=== PATIENT | male | born 1980 | race Caucasian/White ===

== ENCOUNTER 2024-08-25 10:33 | Emergency (ER) | payer MEDICAID, SELFPAY ==
--- NOTE | 2024-08-25 10:36 | ECG_ITS ---
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
[2024-08-25 10:42] VITALS: BP 125/91; PULSE 80; RESP 16; TEMP 36.8; O2SAT 98; BMI 27.2
--- NOTE | 2024-08-25 10:46 | CTR_ITS ---
PROCEDURE INFORMATION: Exam: CT Head Without Contrast Exam date and time: 08/25/2024 11:04 AM Age: 44 years old Clinical indication: Dizziness TECHNIQUE: Imaging protocol: Computed tomography of the head without contrast. Radiation optimization: All CT scans at this facility use at least one of these dose optimization techniques: automated exposure control; mA and/or kV adjustment per patient size (includes targeted exams where dose is matched to clinical indication); or iterative reconstruction. COMPARISON: No relevant prior studies available. RADIATION DOSE METRICS: Total DLP (mGy-cm): 1043.68 FINDINGS: Brain: Normal. No hemorrhage. Unremarkable white matter. No mass effect. Cerebral ventricles: No ventriculomegaly. Paranasal sinuses: Visualized sinuses are unremarkable. No fluid levels. Mastoid air cells: Visualized mastoid air cells are well aerated. Bones: Unremarkable. No acute fracture. Soft tissues: Unremarkable. CT/CT head wo con* [id number] IMPRESSION: No large territorial infarct or intracranial bleed.
--- NOTE | 2024-08-25 10:46 | XRR_ITS ---
PROCEDURE INFORMATION: Exam: XR Chest Exam date and time: 08/25/2024 11:08 AM Age: 44 years old Clinical indication: Other: Weakness TECHNIQUE: Imaging protocol: Radiologic exam of the chest. Views: 1 view. COMPARISON: No relevant prior studies available. FINDINGS: Lungs: Bilateral apical fibrotic changes. There is no evidence of focal pulmonary consolidation. Pleural spaces: Unremarkable. No pleural effusion. No pneumothorax. Heart/Mediastinum: Unremarkable. No cardiomegaly. Bones/joints: Unremarkable. XR/XR chest 1V portable [id number] IMPRESSION: No acute cardiopulmonary process.
--- NOTE | 2024-08-25 10:54 | ED_ITS ---
HPI - Chest Pain 2 General: Chief Complaint: Chest Pain Stated Complaint: dizzy, sob, chest tightness, neck pain Time Seen by Provider: 08/25/24 10:42 History of Present Illness: 44-year-old man with reported history of coronary artery disease and heart failure who presents the emergency room with symptoms that developed while he is in charge. He said he had some left-sided chest tightness and shortness of breath. He became very dizzy. He said he had neck pain and a headache. He says light hurts his eyes. He says he stopped taking his medications for his heart a few months ago because he missed his doctor's appointment. No lower extremity swelling at this time. No focal motor deficits. No fevers. No new cough. Related Data Home Medications ?Medication ?Instructions ?Recorded ?Confirmed No Known Home Medications 08/25/2408/10 Allergies Allergy/AdvReac Type Severity Reaction Status Date / Time No Known Allergies Allergy Verified 08/25/24 10:45 Review of Systems 2 Narrative: Constitutional symptoms: Negative except as documented in HPI. Skin symptoms: Negative except as documented in HPI. Eye symptoms: Negative except as documented in HPI. ENMT symptoms: Negative except as documented in HPI. Respiratory symptoms: Negative except as documented in HPI. Cardiovascular symptoms: Negative except as documented in HPI. Gastrointestinal symptoms: Negative except as documented in HPI. Genitourinary symptoms: Negative except as documented in HPI. Musculoskeletal symptoms: Negative except as documented in HPI. Neurologic symptoms: Negative except as documented in HPI. Psychiatric symptoms: Negative except as documented in HPI. Endocrine symptoms: Negative except as documented in HPI. Physical Exam 2 Narrative: EXAM NARRATIVE: General: Alert, no acute distress. Skin: Warm, dry. Head: Normocephalic, atraumatic. Neck: Supple, trachea midline. Eye: Extraocular movements are intact. Ears, nose, mouth and throat: mucosa moist. Cardiovascular: Regular, Normal peripheral perfusion. Respiratory: Lungs are clear to auscultation, respirations are non-labored, breath sounds are equal, Symmetrical chest wall expansion. Gastrointestinal: Soft, Nontender, Non distended Musculoskeletal: Normal ROM, no deformity. Neurological: Alert and oriented, No focal neurological deficit observed. Psychiatric: Cooperative, appropriate mood & affect. Course 2 Vital Signs: Vital signs: Vital Signs Temperature 98.2 F 08/25/24 10:42 Pulse Rate 72 08/25/24 13:12 Respiratory Rate 16 08/25/24 10:42 Blood Pressure 139/89 08/25/24 13:12 Pulse Oximetry 100 08/25/24 13:12 Oxygen Delivery Me thod Room Air 08/25/24 12:30 MDM - Chest Pain Medical Decision Making Differential diagnosis for patient with chest pain includes but is not limited to and based on the above HPI, review of systems and physical exam: Pneumonia. unstable angina. angina. Acute coronary syndrome / [place]. Pulmonary embolism. Costochondritis / musculoskeletal. Pleurisy. Pericarditis. Esophageal spasm. Pancreatis. Cholecystitis. Orders placed to evaluate differential diagnosis based on the above differential, HPI and physical exam EKG: Time 1037. Rate 81. Normal sinus rhythm, No ST-T changes, no ectopy, normal NC & QRS intervals, This was reviewed and interpreted by myself the ER physician at 1038 Chest x-ray: No acute process. No infiltrate. No pneumothorax. This was reviewed and interpreted by myself the emergency room physician. I also reviewed the radiology report. CT head: This was done because patient was having dizziness and sensitivity to light. No acute intracranial process. no intracranial hemorrhage, no evidence of infarct. no evidence of acute fracture.This was reviewed and interpreted by myself the ER physician. Lab Review: Laboratory results were reviewed and interpreted by myself the emergency room physician. No leukocytosis. No anemia. No renal failure. proBNP is negative. Chest x- ray does not show any signs of heart failure either. Repeat EKG: Time 1227. Rate 75. Normal sinus rhythm, No ST-T changes, no ectopy, normal NC & QRS intervals, This was reviewed and interpreted by myself the ER physician at 1235. No significant changes from EKG done previously today in the emergency room. I reviewed the patient's medical record. Reexamination: Patient remained stable. No increased work of breathing. No altered mental status. No focal motor deficits. Symptoms have resolved he still seems a bit fatigued. He is requesting to go home Assessment and plan: Noncardiac chest pain Dizziness - Discharged home - Discussed plan with patient. Answered any questions. - Evaluation and treatment of this problem were appropriate in the emergency setting. Lab Data 08/25/24 10:53 08/25/24 10:53 Radiology Impressions Chest X-Ray 08/25/24 10:46 IMPRESSION: No acute cardiopulmonary process. Head CT 08/25/24 10:46 IMPRESSION: No large territorial infarct or intracranial bleed. Laboratory Results WBC 6.22 10^3/uL (3.29-11.43) 08/25/24 10:53 RBC 5.27 10^6/uL (3.85-5.65) 08/25/24 10:53 Hgb 15.70 g/dL (11.27-16.99) 08/25/24 10:53 Hct 46.8 % (37-53) 08/25/24 10:53 MCV 88.8 fl (82-101) 08/25/24 10:53 MCH 29.8 pg (27-33) 08/25/24 10:53 MCHC 33.5 g/dL (30-55) 08/25/24 10:53 RDW 11.9 % (12.1-15.1) L 08/25/24 10:53 Plt Count 235 10^3/cmm (157-399) 08/25/24 10:53 MPV 10.9 fL (7.4-10.4) H 08/25/24 10:53 Neut % (Auto) 45.7 % 08/25/24 10:53 Lymph % (Auto) 37.1 % 08/25/24 10:53 [place] % (Auto) 10.3 % 08/25/24 10:53 Eos % (Auto) 5.1 % 08/25/24 10:53 Baso % (Auto) 1.3 % 08/25/24 10:53 Neut # (Auto) 2.84 10^3/uL (1.8-7.7) 08/25/24 10:53 Lymph # (Auto) 2.3 10^3/uL (0.8-4.8) 08/25/24 10:53 [place] # (Auto) 0.6 10^3/uL (0.2-0.9) 08/25/24 10:53 Eos # (Auto) 0.3 10^3/uL (0.0-0.8) 08/25/24 10:53 Baso # (Auto) 0.1 10^3/uL (0.0-0.1) 08/25/24 10:53 Nucleated RBC % (auto) 0 % 08/25/24 10:53 Nucleated RBCs # 0.0 /100WBC 08/25/24 10:53 Sodium 138 mmol/L (136-145) 08/25/24 10:53 Potassium 4.5 mmol/L (3.5-5.1) 08/25/24 10:53 Chloride 104 mmol/L (98-107) 08/25/24 10:53 Carbon Dioxide 24 mmol/L (22-29) 08/25/24 10:53 Anion Gap 14.5 (5-19) 08/25/24 10:53 BUN 13 mg/dL (6-20) 08/25/24 10:53 Creatinine 0.9 mg/dL (0.7-1.2) 08/25/24 10:53 GFR Calculation 91.3 mL/min (90-130) 08/25/24 10:53 Glucose 121 mg/dL (65-115) H 08/25/24 10:53 Calculated Osmolality 287 mOsm/kg (285-295) 08/25/24 10:53 Lactic Acid 1.2 mmol/L (0.5-2.2) 08/25/24 10:53 Calcium 9.1 mg/dL (8.5-10.5) 08/25/24 10:53 Total Bilirubin 0.3 mg/dL (0.15-1.2) 08/25/24 10:53 AST 30 U/L (0-40) 08/25/24 10:53 ALT 49 U/L (0-41) H 08/25/24 10:53 Alkaline Phosphatase 81 U/L (40-130) 08/25/24 10:53 Troponin T Baseline 9 ng/L (0-15) 08/25/24 10:53 Troponin T 120 Minute 6.74 ng/L (0-15) 08/25/24 12:26 Delta Troponin T -2.26 ABS# (0-10) L 08/25/24 12:26 C-Reactive Protein 3.0 mg/L (0.0-4.9) 08/25/24 10:53 NT-Pro-B Natriuret Pep < 36 pg/mL (0-125) 08/25/24 10:53 Total Protein 6.3 g/dL (6.6-8.7) L 08/25/24 10:53 Albumin 3.9 g/dL (3.5-5.2) 08/25/24 10:53 Globulin 2.4 g/dL (1.3-4.6) 08/25/24 10:53 Ethyl Alcohol < 10 mg/dL (0-10) 08/25/24 10:53 All radiology interpretation(s) finalized by discharge Discharge Plan Discharge Patient Disposition: Home Clinical Impression: Non-cardiac chest pain Condition: Stable Prescriptions: No Action No Known Home Medications Discharge Orders: Discharge ED (Routine); Ordered 08/25/24 Ordered By: Jannette Diaz Discharge Diet: Usual diet Discharge Activity: Increase activity as tolerated Patient Instructions: Noncardiac Chest Pain (ED), Opioid Safety, Pain Management Activity Restrictions/Additional Instructions: Thank you for choosing [facility] for your healthcare needs today. Please realize this is an emergency room and that we are providing you with a medical screening exam and this may not be complete and all inclusive of all the testing and or work up that you may need to determine your ailment or severity of your illness. You have been screened and evaluated and felt safe for discharge. Health conditions do change or evolve sometimes and as such it is important that you follow up with your Primary Doctor to be re checked, 3-5 days is a general good time frame for follow up. You are always welcome to return to the ED for re assessment if your symptoms are worsening or you have new concerns Print Language: Russian Coding Level of Care Code ED Upholstery Handler for Matilde Chandra
[2024-08-25 11:00] VITALS: BP 139/88; PULSE 69; O2SAT 100
[2024-08-25 11:00] LABS: Basophils # 0.1 10^3/uL (0.0-0.1); Basophils % 1.3 %; Eosinophils # 0.3 10^3/uL (0.0-0.8); Eosinophils % 5.1 %; Hematocrit 46.8 % (37-53); Lymphocytes # 2.3 10^3/uL (0.8-4.8); Lymphocytes % 37.1 %; Mean Corpuscular HGB Conc 33.5 g/dL (30-55); Mean Corpuscular Hemoglobin 29.8 pg (27-33); Mean Corpuscular Volume 88.8 fl (82-101); Mean Platelet Volume 10.9 fL (7.4-10.4); Monocytes # 0.6 10^3/uL (0.2-0.9); Monocytes % 10.3 %; Neutrophils # 2.84 10^3/uL (1.8-7.7); Neutrophils % 45.7 %; Nucleated Red Blood Cells % 0 %; Platelet Count 235 10^3/cmm (157-399); Red Blood Count 5.27 10^6/uL (3.85-5.65); Red Cell Distribution Width 11.9 % (12.1-15.1); White Blood Count 6.22 10^3/uL (3.29-11.43)
[2024-08-25] MEDS: ketorolac 30 mg/mL INJ IVP (11:00)
[2024-08-25] MEDS: ondansetron 2 mg/ML SDV 2 mL 4 MG IVP (11:01)
[2024-08-25 11:18] LABS: Lactic Sepsis W/Reflex 1.2 mmol/L (0.5-2.2); Troponin(5th) Baseline 9 ng/L (0-15)
[2024-08-25 11:26] LABS: Alanine Aminotransferase 49 U/L (0-41); Albumin Level 3.9 g/dL (3.5-5.2); Alcohol Level < 10 mg/dL (0-10); Alkaline Phosphatase 81 U/L (40-130); Anion Gap 14.5 (5-19); Aspartate Amino Transferase 30 U/L (0-40); Blood Urea Nitrogen 13 mg/dL (6-20); Calcium 9.1 mg/dL (8.5-10.5); Carbon Dioxide 24 mmol/L (22-29); Chloride 104 mmol/L (98-107); Creatinine Clr Calc Pharmacy 114.7524; Globulin 2.4 g/dL (1.3-4.6); Glomerular Filtration Rate 91.3 mL/min (90-130); Glucose 121 mg/dL (65-115); NT Pro B Type Natriuretic Pept < 36 pg/mL (0-125); Osmolality Calculated 287 mOsm/kg (285-295); Potassium 4.5 mmol/L (3.5-5.1); Sodium 138 mmol/L (136-145); Total Bilirubin 0.3 mg/dL (0.15-1.2); Total Protein 6.3 g/dL (6.6-8.7)
[2024-08-25 12:30] VITALS: BP 136/89; PULSE 81; O2SAT 98
--- NOTE | 2024-08-25 12:48 | ECG_ITS ---
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
[2024-08-25 12:50] LABS: Troponin 5 2HR 6.74 ng/L (0-15); Troponin 5 2HR Delta -2.26 ABS# (0-10)
[2024-08-25 13:12] VITALS: BP 139/89; PULSE 72; O2SAT 100
== END 2024-08-25 13:13 | disposition home or self-care (01) ==
PROVIDERS: Emergency Provider Emergency Medicine
DX: R07.89 Other chest pain (principal)
CPT/HCPCS: 36415; 70450; 71045; 80053; 80307; 83605; 83880; 84484; 85025; 86140; 93005; 96374; 96375; 99285; J1885; J2405

== ENCOUNTER 2024-12-15 12:24 | Emergency (ER) | payer BC, MEDICAID, SELFPAY ==
[2024-12-15 12:51] VITALS: BP 162/93; PULSE 74; RESP 18; TEMP 36.5; O2SAT 100; BMI 27.2
[2024-12-15 13:43] LABS: Hematocrit 45.9 % (37-53); Hemoglobin 15.30 g/dL (11.27-16.99); Mean Corpuscular HGB Conc 33.3 g/dL (30-55); Mean Corpuscular Hemoglobin 30.3 pg (27-33); Mean Corpuscular Volume 90.9 fl (82-101); Nucleated Red Blood Cells % 0 %; Platelet Count 170 10^3/cmm (157-399); Red Blood Count 5.05 10^6/uL (3.85-5.65); White Blood Count 6.57 10^3/uL (3.29-11.43)
[2024-12-15 14:07] LABS: Alanine Aminotransferase 57 U/L (0-41); Albumin Level 4.0 g/dL (3.5-5.2); Alkaline Phosphatase 68 U/L (40-130); Anion Gap 16.0 (5-19); Aspartate Amino Transferase 40 U/L (0-40); Blood Urea Nitrogen 10 mg/dL (6-20); Calcium 9.1 mg/dL (8.5-10.5); Carbon Dioxide 24 mmol/L (22-29); Chloride 100 mmol/L (98-107); Creatinine Clr Calc Pharmacy 114.7524; Globulin 2.7 g/dL (1.3-4.6); Glucose 93 mg/dL (65-115); Lipase 28 U/L (13-60); Osmolality Calculated 281 mOsm/kg (285-295); Potassium 4.0 mmol/L (3.5-5.1); Sodium 136 mmol/L (136-145); Total Protein 6.7 g/dL (6.6-8.7)
[2024-12-15 14:47] VITALS: BP 156/107; RESP 16; O2SAT 98
--- NOTE | 2024-12-15 14:55 | ED_ITS ---
HPI - General Adult 2 General: Chief complaint: Abdominal Pain Stated complaint: back pain Time Seen by Provider: 12/15/24 14:37 Source: patient Mode of arrival: ambulatory Limitations: no limitations History of Present Illness: 44-year-old male states has been having left lower back pain for the last 5 days it has been a sharp pain is much worse with palpation and movement. He denies any abdominal pain to me denies any dysuria denies any vomiting. States he has had subjective fevers at home Associated symptoms: Deny chest pain, dyspnea, headache(s), nausea, rash or vomiting Related Data Previous Rx's ?Medication ?Instructions ?Recorded methocarbamol 750 mg tablet 750 mg PO Q6H PRN spasms # 20 tabs 12/15/24 naproxen 500 mg tablet (Naprosyn) 500 mg PO BID PRN pa in #20 tabs 12/15/24 Allergies Allergy/AdvReac Type Severity Reaction Status Date / Time tramadol Allergy ADR-Vomitin Verified 12/15/24 12:54 g trazodone Allergy ADR-Vomitin Verified 12/15/24 12:54 g Review of Systems 2 Const: Denies: chills, body aches or change in appetite ENMT: Denies: throat pain or dental pain Card: Denies: chest pain Resp: Denies: dyspnea GI: Denies: abdominal pain, nausea, vomiting or diarrhea : Denies: dysuria Musc: Reports: back pain; Denies: neck pain Skin/Breast: Denies: rash Neuro: Denies: headache(s) Physical Exam 2 Const: COMMON NORMALS: no acute distress, patient oriented x3 and healthy appearing HENMT: COMMON NORMALS: normocephalic and atraumatic HEAD & SCALP: n ormocephalic and atraumatic Eye: COMMON NORMALS: conjunctivae normal CONJUNCTIVA: Yes conjunctivae normal Neck/C-Spine: COMMON NORMALS: full ROM and supple Chest: COMMONS NORMALS: normal inspection of the chest Resp: COMMON NORMALS: normal respiratory effort Cardio: COMMON NORMALS: regular rate, regular rhythm and No murmurs present (Cardio) RATE: regular rate RHYTHM: regular rhythm GI: COMMON NORMALS: Normal to inspection, nondistended, normoactive bowel sounds present, Soft to palpation, non-tender and no masses PALPATION: Yes Soft to palpation Back/Pelvis: OTHER: Tenderness noted over left lower lumbar no midline tenderness Extremity: COMMON NORMALS: normal to inspection and full ROM Neuro: COMMON NORMALS: patient oriented x3, moves all extremities and no focal motor deficits Psych: COMMON NORMALS: mental status grossly normal, Normal thought process present and cooperative THOUGHT PROCESS: Normal thought process present Skin: COMMON NORMALS: no rashes or lesions noted and no wounds GENERAL SKIN EXAM: no rashes or lesions noted Course 2 Vital Signs: Vital signs: Vital Signs Temperature 97.7 F 12/15/24 12:51 Pulse Rate 74 12/15/24 12:51 Respiratory Rate 16 12/15/24 14:47 Blood Pressure 156/107 12/15/24 14:47 Pulse Oximetry 98 12/15/24 14:47 Oxygen Delivery Me thod Room Air 12/15/24 14:47 MDM - General Adult Medical Decision Making Patient presents. Back pain is likely muscular in nature blood work urine is normal no signs of kidney stone we will place him on anti-inflammatory muscle relaxant he is to follow-up with PCP and return if worsening his abdominal exam is benign. Medical Records I reviewed the patient's medical records. Lab Data I reviewed the patient's lab results. 12/15/24 13:38 12/15/24 13:38 Laboratory Results WBC 6.57 10^3/uL (3.29-11.43) 12/15/24 13:38 RBC 5.05 10^6/uL (3.85-5.65) 12/15/24 13:38 Hgb 15.30 g/dL (11.27-16.99) 12/15/24 13:38 Hct 45.9 % (37-53) 12/15/24 13:38 MCV 90.9 fl (82-101) 12/15/24 13:38 MCH 30.3 pg (27-33) 12/15/24 13:38 MCHC 33.3 g/dL (30-55) 12/15/24 13:38 RDW 12.1 % (12.1-15.1) 12/15/24 13:38 Plt Count 170 10^3/cmm (157-399) 12/15/24 13:38 MPV 11.4 fL (7.4-10.4) H 12/15/24 13:38 Neut % (Auto) 41.5 % 12/15/24 13:38 Lymph % (Auto) 44.1 % 12/15/24 13:38 [place] % (Auto) 8.1 % 12/15/24 13:38 Eos % (Auto) 4.9 % 12/15/24 13:38 Baso % (Auto) 1.1 % 12/15/24 13:38 Neut # (Auto) 2.73 10^3/uL (1.8-7.7) 12/15/24 13:38 Lymph # (Auto) 2.9 10^3/uL (0.8-4.8) 12/15/24 13:38 [place] # (Auto) 0.5 10^3/uL (0.2-0.9) 12/15/24 13:38 Eos # (Auto) 0.3 10^3/uL (0.0-0.8) 12/15/24 13:38 Baso # (Auto) 0.1 10^3/uL (0.0-0.1) 12/15/24 13:38 Nucleated RBC % (auto) 0 % 12/15/24 13:38 Nucleated RBCs # 0.0 /100WBC 12/15/24 13:38 Sodium 136 mmol/L (136-145) 12/15/24 13:38 Potassium 4.0 mmol/L (3.5-5.1) 12/15/24 13:38 Chloride 100 mmol/L (98-107) 12/15/24 13:38 Carbon Dioxide 24 mmol/L (22-29) 12/15/24 13:38 Anion Gap 16.0 (5-19) 12/15/24 13:38 BUN 10 mg/dL (6-20) 12/15/24 13:38 Creatinine 0.9 mg/dL (0.7-1.2) 12/15/24 13:38 GFR Calculation 91.3 mL/min (90-130) 12/15/24 13:38 Glucose 93 mg/dL (65-115) 12/15/24 13:38 Calculated Osmolality 281 mOsm/kg (285-295) L 12/15/24 13:38 Calcium 9.1 mg/dL (8.5-10.5) 12/15/24 13:38 Total Bilirubin 0.3 mg/dL (0.15-1.2) 12/15/24 13:38 AST 40 U/L (0-40) 12/15/24 13:38 ALT 57 U/L (0-41) H 12/15/24 13:38 Alkaline Phosphatase 68 U/L (40-130) 12/15/24 13:38 Total Protein 6.7 g/dL (6.6-8.7) 12/15/24 13:38 Albumin 4.0 g/dL (3.5-5.2) 12/15/24 13:38 Globulin 2.7 g/dL (1.3-4.6) 12/15/24 13:38 Lipase 28 U/L (13-60) 12/15/24 13:38 Urine Color Yellow (Yellow) 12/15/24 13:38 Urine Appearance Clear (CLEAR) 12/15/24 13:38 Urine pH 7.0 (5-7) 12/15/24 13:38 Ur Specific [place] 1.019 (1.005-1.030) 12/15/24 13:38 Urine Protein Negative (Negative) 12/15/24 13:38 Urine Glucose (UA) Negative (Normal) 12/15/24 13:38 Urine Ketones Negative (Negative) 12/15/24 13:38 Urine Blood Negative (Negative) 12/15/24 13:38 Urine Nitrate Negative (Negative) 12/15/24 13:38 Urine Bilirubin Negative (Negative) 12/15/24 13:38 Urine Urobilinogen 1.0 mg/dL (Negative) 12/15/24 13:38 Ur Leukocyte Esterase Negative (Negative) 12/15/24 13:38 Urine RBC 0-2 /hpf (0-2) 12/15/24 13:38 Urine WBC 0-5 /hpf (0-5) 12/15/24 13:38 Ur Squamous Epith Cells 0-5 /hpf (0-5) 12/15/24 13:38 Amorphous Sediment Not Reportable 12/15/24 13:38 Urine Bacteria None seen /hpf (NONE) 12/15/24 13:38 Hyaline Casts 0-4 /lpf H 12/15/24 13:38 No radiology studies performed this visit Discharge Plan Discharge Patient Disposition: Home Clinical Impression: Low back pain Condition: Stable Prescriptions: New methocarbamol 750 mg tablet 750 mg PO Q6H PRN (Reason: spasms) Qty: 20 0RF naproxen [Naprosyn] 500 mg tablet 500 mg PO BID PRN (Reason: pain) Qty: 20 0RF Discharge Orders: Discharge ED (Routine); Ordered 12/15/24 Ordered By: Hamlet Roca Discharge Diet: Advance as tolerated Discharge Activity: Resume usual activity Patient Instructions: Back Pain (ED) Print Language: [place] Islander Coding Level of Care Code ED No Experience for Matilde Chandra
[2024-12-15] MEDS: HYDROcodone-acetaminophen 7.5-325 mg Tablet 1 TAB PO (14:56)
[2024-12-15 15:09] LABS: Glucose Urine UA Negative (Normal); Nitrate Urine Negative (Negative); Specific Gravity, Urine 1.019 (1.005-1.030)
[2024-12-15 15:14] LABS: Add Urine Microscopic? YES
[2024-12-15 15:39] VITALS: BP 151/101; PULSE 77; O2SAT 98
== END 2024-12-15 15:40 | disposition home or self-care (01) ==
PROVIDERS: Emergency Provider Emergency Medicine
DX: M54.50 Low back pain, unspecified (principal)
CPT/HCPCS: 36415; 80053; 81001; 83690; 85025; 99283; J9999